=== PATIENT | female | born 1970 | race Caucasian/White ===

== ENCOUNTER 2016-06-04 15:50 | Emergency (ER) | payer MEDICAID, MEDICARE ==
[~2016-06-04] VITALS: Ht 170.2 cm; Wt 93.6 kg
[~2016-06-04 15:50] MED LIST: GLIP5TAB11 PO; LEVO88CA2 PO; LOSA50TA37 PO; MAGOX PO; METF10002 PO; RIFAX550 PO; VITAD1000 PO
[2016-06-04] MEDS ORDERED: OMEP20 PO (16:43)
[2016-06-04] MEDS ORDERED: BUPR100 PO (16:43)
[2016-06-04] MEDS ORDERED: PARO20TA24 PO (16:43)
[2016-06-04 16:47] LABS: GLUCOSE,POINT OF CARE 264 MG/DL (70-110)
[2016-06-04 17:01] LABS: BASOPHILS % (AUTO) 0.7 % (0.0-2.0); EOSINOPHILS % (AUTO) 3.6 % (1.0-6.0); HEMATOCRIT 35.5 % (36-46); HEMOGLOBIN 11.2 g/dL (12.0-16.0); LYMPHOCYTES # (AUTO) 2.2 K/uL (1.0-4.8); LYMPHOCYTES % (AUTO) 23.8 % (22.0-44.0); MEAN CORPUSCULAR HEMOGLOBIN 24.6 pg (26.0-34.0); MEAN CORPUSCULAR HGB CONC 31.5 G/dL (31.0-37.0); MEAN CORPUSCULAR VOLUME 78 fL (80-100); MONOCYTES # (AUTO) 0.7 K/uL (0.1-1.0); MONOCYTES % (AUTO) 7.1 % (2.0-9.0); NEUTROPHILS % (AUTO) 64.8 % (40.0-70.0); PLATELET COUNT (AUTO) 269 K/uL (150-450); RED BLOOD CELL COUNT(AUTO) 4.56 MIL/uL (4.00-5.20); RED CELL DISTRIBUTION WIDTH 15.8 % (11.5-14.5); WHITE BLOOD COUNT (AUTO) 9.3 K/uL (4.5-11.0)
[2016-06-04 17:13] LABS: ANION GAP 9 mmol/L (8-16); CALCIUM, TOTAL 8.6 mg/dL (8.8-10.5); CARBON DIOXIDE 26 mmol/L (22-29); CHLORIDE 101 mmol/L (98-107); CREATININE 0.95 mg/dL (0.60-1.30); GLOMERULAR FILTR. RATE CALC > 60 mL/min (>60); SODIUM SERUM 136 mmol/L (136-145); UREA NITROGEN, BLOOD 12 mg/dL (7-18)
[2016-06-04 17:19] LABS: ALANINE AMINOTRANSFERASE 29 U/L (12-78); ALBUMIN 3.5 g/dL (3.4-5.0); AMYLASE 48 U/L (25-115); ASPARTATE AMINOTRANSFERASE 27 U/L (15-37); BILIRUBIN,TOTAL 0.4 mg/dL (0.1-1.0)
[2016-06-04 17:27] LABS: RBC MORPHOLOGY COMMENT ABNORMAL RBC MORPH
[2016-06-04 17:36] LABS: APPEARANCE,URINE CLEAR (CLEAR); GLUCOSE, URINE (UA) 250 mg/dL (NEGATIVE); KETONES,URINE TRACE mg/dL (NEGATIVE); LEUKOCYTE ESTERASE ,URINE SMALL (NEGATIVE); OCCULT BLOOD,URINE NEGATIVE (NEGATIVE); PH,URINE 5.5 (5.0-8.0); PROTEIN,URINE NEGATIVE (NEGATIVE)
[2016-06-04 17:37] LABS: ADD UA MICROSCOPIC YES
[2016-06-04 17:40] LABS: SQUAMOUS EPITHELIAL CELL,UR Moderate /LPF (None Seen)
[2016-06-04 17:43] LABS: RBC,URINE 0-2 /HPF (0-2)
[2016-06-04] MEDS ORDERED: HYDROmorphone 2 MG/ML SYRINGE IVP ONE ×3 (18:30→21:15)
[2016-06-04] MEDS ORDERED: ONDANSETRON HCL 4 MG/2 ML VIAL IVP ONE (18:30)
[2016-06-04] MEDS ORDERED: SODIUM CHLORIDE 0.9% 1,000 ML IV ONE (18:30)
[2016-06-04] MEDS ORDERED: MORPHINE SULFATE 4 MG/ML SYRINGE IVP ONE (18:45)
[2016-06-04 18:47] LABS: PROTHROMBIN TIME 10.7 SEC (9.4-11.6)
[2016-06-04 21:25] VITALS: BP 145/94
== END 2016-06-04 21:32 | disposition home or self-care (01) ==
LOC: EMS 15:51
DX: R10.31 Right lower quadrant pain (principal); E11.9 Type 2 diabetes mellitus without complications; Z88.1 Allergy status to other antibiotic agents; Z88.5 Allergy status to narcotic agent
CPT/HCPCS: 36415; 76700; 80053; 81001; 82140; 82150; 82962; 83690; 85025; 85610; 87086; 96361; 96374; 96375; 96376; 99285; J1170; J2405; J7030